=== PATIENT | female | born 1995 | race Caucasian/White ===

== ENCOUNTER 2021-02-26 12:36 | Emergency (ER) | payer BC ==
[~2021-02-26] VITALS: Ht 154.9 cm; Wt 49.9 kg
[2021-02-26 12:45] VITALS: BP 117/67
[2021-02-26] MEDS ORDERED: FLEXERIL PO (14:07)
[2021-02-26] MEDS ORDERED: MEDROLDOSEPACK PO (14:07)
[2021-02-26] MEDS ORDERED: NAPROSYN500 MG PO (14:07)
== END 2021-02-26 14:27 | disposition home or self-care (01) ==
LOC: M.ERS 12:36
DX: R09.1 Pleurisy (principal); F17.210 Nicotine dependence, cigarettes, uncomplicated